=== PATIENT | male | born 1985 | race African-American/Black ===

== ENCOUNTER 2017-02-05 00:13 | Emergency (ER) | payer OTHER ==
[~2017-02-05] VITALS: Ht 165.1 cm; Wt 70.5 kg
[~2017-02-05 00:13] MED LIST: HYDR2.5%T PR
[2017-02-05 00:35] VITALS: BP 132/92; PULSE 102; RESP 18; TEMP 98.4; O2SAT 100
[2017-02-05] MEDS ORDERED: SODIUM CHLOR 0.9% 1000 ML INJ 1,000 ML IV ONE (00:41)
[2017-02-05] MEDS ORDERED: ANTIVIRAL (00:43)
[2017-02-05 00:44] VITALS: O2SAT 100
[2017-02-05] MEDS ORDERED: SODIUM CHLORIDE 0.9% FLUSH 10 ML FLUSH IVF PRN (00:45)
[2017-02-05 01:02] LABS: AUTOMATED NEUTROPHIL # 5.6 TH/MM3 (1.8-7.7); BASOPHIL # 0.1 TH/MM3 (0-0.2); BASOPHIL % 0.9 % (0.0-2.0); EOSINOPHIL # 0.2 TH/MM3 (0-0.4); HEMATOCRIT 44.1 % (39.0-51.0); HEMO FLAGS DIFF FINAL; LYMPH % 25.9 % (9.0-44.0); LYMPHOCYTE # 2.4 TH/MM3 (1.0-4.8); MEAN CELL VOLUME 93.6 FL (80.0-100.0); MEAN CORPUSCULAR HEMOGLOBIN 31.8 PG (27.0-34.0); MONO % 9.1 % (0.0-8.0); NEUT % 62.1 % (16.0-70.0); PLATELET COUNT 293 TH/MM3 (150-450); RED BLOOD COUNT 4.72 MIL/MM3 (4.50-5.90); RED CELL DISTRIBUTION WIDTH 12.7 % (11.6-17.2); WHITE BLOOD COUNT 9.1 TH/MM3 (4.0-11.0)
[2017-02-05 01:06] LABS: BLOOD GAS HCO3 21 mmol/L (22-26); BLOOD GAS O2 HGB SATURATION 90 % (90-100); BLOOD GAS OXYGEN CONTENT 18.5 Vol % (12.0-20.0); BLOOD GAS PCO2 37 mmHg (38-42); BLOOD GAS PO2 94 mmHG (61-120); BLOOD GAS TOTAL HGB 14.6 G/DL (12.0-16.0); TEMP CORR TO 98.6
[2017-02-05 01:07] LABS: CRITICAL VALUE YES; DRAW SITE RT RADIAL; FIO2 2 %; NUMBER OF ARTERIAL PUNCTURES 2; OXYGEN DEVICE ROOM AIR; STAT YES; ULNAR PULSE PRESENT
[2017-02-05 01:14] LABS: APTT (PATIENT) 26.3 SEC (24.3-30.1); PROTHROMBIN TIME - PATIENT 10.7 SEC (9.8-11.6)
[2017-02-05 01:24] LABS: ALCOHOL 17 MG/DL (0-5); ANION GAP 13 MEQ/L (5-15); AST (GOT) 21 U/L (15-37); BLOOD UREA NITROGEN 13 MG/DL (7-18); CHLORIDE 103 MEQ/L (98-107); GLOMERULAR FILTRATION RATE 116 ML/MIN (>89); POTASSIUM 3.6 MEQ/L (3.5-5.1); SODIUM (NA) 137 MEQ/L (136-145)
--- NOTE | 2017-02-05 01:24 | RADRPT ---
EXAM DATE/TIME: 02/05/2017 00:49 [place] COMPARISON: No previous studies available for comparison. INDICATIONS : Short of breath. MEDICAL HISTORY : None. SURGICAL HISTORY : None. ENCOUNTER: Initial ACUITY: 1 day PAIN SCORE: 0/10 LOCATION: Bilateral chest FINDINGS: A single view of the chest demonstrates the lungs to be symmetrically aerated without evidence of mas s, infiltrate or effusion. The cardiomediastinal contours are unremarkable. Osseous structures are intact. CONCLUSION: No acute disease. Dragan Moss MD on February 05, 2017 at 1:22 Board Certified Radiologist. This report was verified electronically.
[2017-02-05 01:26] LABS: ALKALINE PHOSPHATASE 74 U/L (45-117); ALT (GPT) 27 U/L (12-78); TOTAL BILIRUBIN ADULT 0.3 MG/DL (0.2-1.0)
[2017-02-05 01:29] LABS: ACETAMINOPHEN LESS THAN 2.0 MCG/ML (10.0-30.0)
[2017-02-05 01:35] VITALS: BP 120/82; PULSE 102; RESP 18; O2SAT 99
--- NOTE | 2017-02-05 02:02 | PD ---
HPI Chief Complaint: Suicide Ideation/Attempt Time Seen by Provider: 00:41 Travel History International Travel<30 days: No Contact w/Intl Traveler<30days: No Traveled to known affect area: No History of Present Illness HPI The patient is a 31 year old male who presents to the [facility] emergency department with a history of being Jane acted prior to arrival due to his family finding a suicide note. The patient was noted to be in his vehicle with a can of hodge bomb killer going off. The patient additionally reports that he has done Lila, smokes marijuana, and drank 2 beers this evening. According to the Jane act patient has attempted suicide in the past. The patient on arrival is tearful. The patient has a flat affect and has the ability making eye contact. The patient reports that he has had multiple stressors that brought this on. He denies having any acute medical complaints. Prior to arrival the patient was reporting having shortness of breath. The patient was disrobed on arrival to the emergency department to remove any contaminated clothing. The patient's O2 saturations on arrival her from 97-99% on room air. [facility] Past Medical History Narrative Medical The patient's past medical history is reportedly significant for HIV. He reports that he was diagnosed years ago. He is unsure what his last CD4 count or viral load is. He reports that he has been taking retroviral medications for it. Autoimmune Disease: Yes (HIV) Diminished Hearing: No Tetanus Vaccination: < 5 Years Influenza Vaccination: No Past Surgical History Surgical History: No Previous Surgery Social History Alcohol Use: Yes (occasionally) Tobacco Use: Yes (one pack per day) Substance Use: Yes (marijuana) Allergies-Medications (Allergen,Severity, Reaction): Coded Allergies: No Known Allergies (Verified Adverse Reaction, Unknown, 02/05/17) Reported Meds & Prescriptions Reported Meds & Active Scripts Active Reported [Antiviral] Unknown Dose Review of Systems Except as stated in HPI: all other systems reviewed are Neg General / Constitutional: No: Fever Eyes: No: Visual changes HENT: No: Headaches Cardiovascular: No: Chest Pain or Discomfort Respiratory: Positive: Shortness of Breath Gastrointestinal: No: Abdominal Pain Genitourinary: No: Dysuria Musculoskeletal: No: Pain Skin: No Rash Neurologic: No: Weakness, Focal Abnormalities, Change in Mentation, Slurred Speech, Sensory Disturbance Psychiatric: Positive: Depression, Suicidal Ideations, Mood Disorder Endocrine: No: Polydipsia Hematologic/Lymphatic: No: Easy Bruising Physical Exam Narrative General: The patient is well-developed well-nourished male in no acute distress physical distress. The patient is however tearful on examination with a flat affect consistent with depression. Head and Neck exam: Head is normocephalic atraumatic. Eyes: EOMI, pupils are equal round and reactive to light. Nose: Midline septum with pink mucous membranes Mouth: Dentition unremarkable. Moist mucus membranes. Posterior oropharynx is not erythematous. No tonsillar hypertrophy. Uvula midline. Airway patent. Neck: No palpable lymphadenopathy. No nuchal rigidity. No thyromegaly. Cardiovascular: Regular rate and rhythm without murmurs, gallops, or rubs. Lungs: Clear to auscultation bilaterally. No wheezes, rhonchi, or rales. Abdomen: Soft, without tenderness to palpation in all 4 quadrants of the abdomen. No guarding, rebound, or rigidity. Normal bowel sounds are audible. No tenderness on palpation of McBurney's point. Extremities: No clubbing, cyanosis, or edema. 2+ pulses in all 4 extremities. No calf tenderness on palpation. Back: No costovertebral angle tenderness to palpation. Neurologic Exam: Grossly nonfocal. Skin Exam: No rash noted. Intact skin that is warm and dry. Data Data Last Documented VS Vital Signs Date Time Temp Pulse Resp B/P (MAP) Pulse Ox O2 Delivery O2 Flow Rate FiO2 02/05/17 01:35 102 18 120/82 (95) 99 Room Air 02/05/17 00:35 98.4 Orders Orders Electrocardiogram (02/05/17 00:41) Complete Blood Count With Diff (02/05/17 00:41) Comprehensive Metabolic Panel (02/05/17 00:41) Prothrombin Time / Inr (Pt) (02/05/17 00:41) Act Partial Throm Time (Ptt) (02/05/17 00:41) Osmolality,Serum (02/05/17 00:41) Osmolality, Urine (02/05/17 00:41) Urinalysis - C+S If Indicated (02/05/17 00:41) Chest, Single Ap (02/05/17 00:41) Arterial Blood Gas (Abg) (02/05/17 00:41) Blood Glucose (02/05/17 00:41) Iv Access Insert/Monitor (02/05/17 00:41) Ecg Monitoring (02/05/17:41) Oximetry (02/05/17 00:41) Psych Screen (02/05/17:41) Sodium Chloride 0.9% Flush (Ns Flush) (02/05/17 00:45) Sodium Chlor 0.9% 1000 Ml Inj (Ns 1000 M (02/05/17 00:41) Call Poison Control (02/05/17:41) Drug Screen, Random Urine (02/05/17:41) Alcohol (Ethanol) (02/05/17:41) Salicylates (Aspirin) (02/05/17:41) Tylenol (Acetaminophen) (02/05/17:41) Labs Laboratory Tests Test 02/05/17 00:45 02/05/17 00:54 White Blood Count 9.1 TH/MM3 Red Blood Count 4.72 MIL/MM3 Hemoglobin 15.0 GM/DL Hematocrit 44.1 % Mean Corpuscular Volume 93.6 FL Mean Corpuscular Hemoglobin 31.8 PG Mean Corpuscular Hemoglobin Concent 34.0 % Red Cell Distribution Width 12.7 % Platelet Count 293 TH/MM3 Mean Platelet Volume 8.7 FL Neutrophils (%) (Auto) 62.1 % Lymphocytes (%) (Auto) 25.9 % Monocytes (%) (Auto) 9.1 % Eosinophils (%) (Auto) 2.0 % Basophils (%) (Auto) 0.9 % Neutrophils # (Auto) 5.6 TH/MM3 Lymphocytes # (Auto) 2.4 TH/MM3 Monocytes # (Auto) 0.8 TH/MM3 Eosinophils # (Auto) 0.2 TH/MM3 Basophils # (Auto) 0.1 TH/MM3 CBC Comment DIFF FINAL Differential Comment Prothrombin Time 10.7 SEC Prothromb Time International Ratio 1.0 RATIO Activated Partial Thromboplast Time 26.3 SEC Blood Urea Nitrogen 13 MG/DL Creatinine 0.92 MG/DL Random Glucose 70 MG/DL Total Protein 8.4 GM/DL Albumin 4.3 GM/DL Calcium Level 8.8 MG/DL Alkaline Phosphatase 74 U/L Aspartate Amino Transf (AST/SGOT) 21 U/L Alanine Aminotransferase (ALT/SGPT) 27 U/L Total Bilirubin 0.3 MG/DL Sodium Level 137 MEQ/L Potassium Level 3.6 MEQ/L Chloride Level 103 MEQ/L Carbon Dioxide Level 21.0 MEQ/L Anion Gap 13 MEQ/L Estimat Glomerular Filtration Rate 116 ML/MIN Serum Osmolality 292 MOSM/KG Salicylates Level 3.1 MG/DL Acetaminophen Level LESS THAN 2.0 MCG/ML Ethyl Alcohol Level 17 MG/DL Blood Gas Puncture Site RT RADIAL Blood Gas Patient Temperature 98.6 Blood Gas HCO3 21 mmol/L Blood Gas Base Excess -4.0 mmol/L Blood Gas Oxygen Saturation 90 % Arterial Blood pH 7.36 Arterial Blood Partial Pressure CO2 37 mmHg Arterial Blood Partial Pressure O2 94 mmHG Arterial Blood Oxygen Content 18.5 Vol % Arterial Blood Carboxyhemoglobin 6.0 % Arterial Blood Methemoglobin 1.0 % Blood Gas Hemoglobin 14.6 G/DL Oxygen Delivery Device ROOM AIR Blood Gas Inspired Oxygen 2 % MDM Medical Decision Making Medical Screen Exam Complete: Yes Emergency Medical Condition: Yes Medical Record Reviewed: Yes Differential Diagnosis Carbon monoxide poisoning, versus aspirin toxicity, versus Tylenol toxicity, versus other toxidrome Narrative Course During the course of the patients emergency department visit, the patients history, examination, and differential diagnosis were reviewed with the patient. The patient was placed on a surveillance monitor with oximetry and frequent blood pressure monitoring. The patient had IV access obtained and blood work sent for analysis. The patient had an ECG done on arrival. The patient's ECG reveals a sinus rhythm with a heart rate of 99, no acute ST segment elevation or depression, QRS duration is 83 ms, QTC 381 ms. Poison control was called regarding this patient's evaluation. They did not recommend any additional observation after initial clearance. The patient was initially provided normal saline 1 L IV fluid bolus. The patients laboratory studies were reviewed and remarkable for ABG reveals a pH of 7.36, PCO2 37, PO2 is 93.6, bicarbonate 20.5, carboxyhemoglobin 6, CBC unremarkable. CMP is unremarkable, serum osmolality 292. PT 10.7, PTT 26.3, alcohol level XVII, acetaminophen less than 2, salicylate 3.1 Radiology studies were reviewed and remarkable for a chest x-ray that shows no acute cardiopulmonary disease. The patient has been medically cleared for evaluation by the psychiatric screener under a Jane act. Diagnosis Primary Impression: Suicide attempt Additional Impression: Depression Qualified Codes: F32.9 - Major depressive disorder, single episode, unspecified Shayna Villalobos MD Feb 05, 2017 02:02
[2017-02-05 03:00] VITALS: BP 124/70; PULSE 85; RESP 16; O2SAT 97
[2017-02-05 03:56] LABS: BLOOD, URINE NEG (NEG); COMMENT (UR) CULTURE INDICATED; CULTURE IF INDICATED CULTURE INDICATED; GLUCOSE,URINE NEG (NEG); HYALINE CAST, URINE 36 /lpf (RARE); KETONE, URINE 10 mg/dL (NEG); MUCUS URINE MOD /lpf (OCC); NITRITE,URINE NEG (NEG); PH, URINE 5.5 (5.0-8.5); URINE COLOR YELLOW (YELLW/STRAW)
[2017-02-05 06:12] VITALS: BP 105/56; PULSE 91; RESP 20
--- NOTE | 2017-02-05 17:47 | EKG ---
Date Performed: 02/05/2017 Time Performed: 00:49:52 PTAGE: 31 years EKG: Sinus rhythm NORMAL ECG NO PREVIOUS TRACING DOCTOR: Leilani Del Cid Interpretating Date/Time 02/05/2017 17:45:40
== END 2017-02-05 14:37 ==
LOC: NEPC 00:13 → NEPJ 14:37
DX: F32.9 Major depressive disorder, single episode, unspecified (principal); B20 Human immunodeficiency virus [HIV] disease; F17.210 Nicotine dependence, cigarettes, uncomplicated; R06.02 Shortness of breath; R82.71 Bacteriuria; Z79.899 Other long term (current) drug therapy
CPT/HCPCS: 36600; 71010; 80053; 80307; 81001; 82805; 83930; 83935; 85025; 85610; 85730; 87086; 93005; 96360; 96361; 99285; J7030